=== PATIENT | male | born 1965 | race Caucasian/White ===

== ENCOUNTER 2018-10-06 10:53 | Emergency (ER) | payer MEDICAID, OTHER ==
[~2018-10-06] VITALS: Ht 172.7 cm; Wt 81.8 kg
[~2018-10-06 10:53] MED LIST: CLON-527 PO; PARO30TA4 PO
[2018-10-06 10:56] VITALS: BP 132/90
[2018-10-06] MEDS ORDERED: PARO40TA PO (11:27)
[2018-10-06] MEDS ORDERED: GABA-530 PO (11:27)
== END 2018-10-06 11:33 | disposition home or self-care (01) ==
LOC: ER 10:53
DX: G62.9 Polyneuropathy, unspecified (principal); I10 Essential (primary) hypertension; F41.9 Anxiety disorder, unspecified; F32.9 Major depressive disorder, single episode, unspecified; Z76.0 Encounter for issue of repeat prescription; Z59.0 Homelessness; Z56.0 Unemployment, unspecified; Z88.0 Allergy status to penicillin; Z79.899 Other long term (current) drug therapy
CPT/HCPCS: 99283

== ENCOUNTER 2018-11-13 17:45 | Emergency (ER) | payer SELFPAY ==
[~2018-11-13] VITALS: Ht 172.7 cm; Wt 77.3 kg
[~2018-11-13 17:45] MED LIST changes: +GABA-530 PO; +PARO40TA PO
[2018-11-13] MEDS ORDERED: MUPI22OI30 TOP (19:21)
[2018-11-13] MEDS ORDERED: TERB30CR22 TP (19:21)
[2018-11-13 19:37] VITALS: BP 144/99
== END 2018-11-13 19:38 | disposition home or self-care (01) ==
LOC: ER 17:46
DX: B36.0 Pityriasis versicolor (principal); L01.09 Other impetigo; G62.9 Polyneuropathy, unspecified; I10 Essential (primary) hypertension; Z59.0 Homelessness; Z56.0 Unemployment, unspecified; Z88.0 Allergy status to penicillin; Z79.899 Other long term (current) drug therapy
CPT/HCPCS: 99283

== ENCOUNTER 2018-11-28 20:28 | Emergency (ER) | payer OTHER ==
[~2018-11-28] VITALS: Ht 172.7 cm; Wt 79.5 kg
[~2018-11-28 20:28] MED LIST changes: +TERB30CR22 TP
[2018-11-28] MEDS ORDERED: MUPI22OI30 TOP (22:26)
[2018-11-28] MEDS ORDERED: SULF1TAB49 PO (22:26)
[2018-11-28 22:50] VITALS: BP 129/93
== END 2018-11-28 22:38 | disposition home or self-care (01) ==
LOC: ER 20:28
DX: L08.89 Other specified local infections of the skin and subcutaneous tissue (principal); I10 Essential (primary) hypertension; F41.9 Anxiety disorder, unspecified; F32.9 Major depressive disorder, single episode, unspecified; G62.9 Polyneuropathy, unspecified; Z59.0 Homelessness; Z56.0 Unemployment, unspecified; Z88.0 Allergy status to penicillin; Z79.899 Other long term (current) drug therapy
CPT/HCPCS: 99283

== ENCOUNTER 2019-07-03 16:40 | Emergency (ER) | payer SELFPAY ==
[~2019-07-03] VITALS: Ht 172.7 cm; Wt 79.0 kg
[~2019-07-03 16:40] MED LIST changes: -TERB30CR22 TP; +TERB30CR8 TP
[2019-07-03 16:46] VITALS: BP 128/90
[2019-07-03] MEDS ORDERED: MINO100C61 PO (17:20)
[2019-07-03] MEDS ORDERED: PARO40TA4 PO (17:20)
[2019-07-03] MEDS ORDERED: MUPI22OI30 TOP (17:20)
== END 2019-07-03 17:41 | disposition home or self-care (01) ==
LOC: ER 16:41
DX: L73.9 Follicular disorder, unspecified (principal); I10 Essential (primary) hypertension; F41.9 Anxiety disorder, unspecified; F32.9 Major depressive disorder, single episode, unspecified; Z59.0 Homelessness; Z56.0 Unemployment, unspecified; Z79.899 Other long term (current) drug therapy
CPT/HCPCS: 99281; 99283

== ENCOUNTER 2019-10-05 18:51 | Emergency (ER) | payer MEDICAID ==
[~2019-10-05] VITALS: Ht 172.7 cm; Wt 67.5 kg
[~2019-10-05 18:51] MED LIST changes: +PARO40TA4 PO
[2019-10-05 18:55] VITALS: BP 130/88
[2019-10-05] MEDS ORDERED: MUPI22OI30 TOP (19:20)
[2019-10-05] MEDS ORDERED: BACDS PO (19:20)
== END 2019-10-05 20:04 | disposition home or self-care (01) ==
LOC: ER 18:52
DX: L01.00 Impetigo, unspecified (principal); G62.9 Polyneuropathy, unspecified; I10 Essential (primary) hypertension; F41.9 Anxiety disorder, unspecified; F32.9 Major depressive disorder, single episode, unspecified; Z59.0 Homelessness; Z56.0 Unemployment, unspecified; Z79.899 Other long term (current) drug therapy
CPT/HCPCS: 99283

== ENCOUNTER 2019-11-20 18:07 | Emergency (ER) | payer MEDICAID ==
[~2019-11-20] VITALS: Ht 172.7 cm; Wt 81.8 kg
[2019-11-20 18:19] VITALS: BP 128/88
[2019-11-20] MEDS ORDERED: PENI500T2 PO (19:19)
== END 2019-11-20 19:41 | disposition home or self-care (01) ==
LOC: ER 18:07
DX: K08.89 Other specified disorders of teeth and supporting structures (principal); I10 Essential (primary) hypertension; F41.9 Anxiety disorder, unspecified; F32.9 Major depressive disorder, single episode, unspecified; Z56.0 Unemployment, unspecified; Z59.0 Homelessness; Z79.2 Long term (current) use of antibiotics; Z79.899 Other long term (current) drug therapy
CPT/HCPCS: 99283

== ENCOUNTER 2019-12-17 15:25 | Emergency (ER) | payer MEDICAID ==
[~2019-12-17] VITALS: Ht 172.7 cm; Wt 81.8 kg
[~2019-12-17 15:25] MED LIST changes: +PENI500T2 PO
[2019-12-17 15:31] VITALS: BP 131/94
[2019-12-17] MEDS ORDERED: MUPI22OI30 TOP (15:56)
[2019-12-17] MEDS ORDERED: DOXY100C76 PO (15:56)
== END 2019-12-17 16:27 | disposition home or self-care (01) ==
LOC: ER 15:26
DX: L08.89 Other specified local infections of the skin and subcutaneous tissue (principal); I10 Essential (primary) hypertension; F41.9 Anxiety disorder, unspecified; F32.9 Major depressive disorder, single episode, unspecified; Z56.0 Unemployment, unspecified; Z59.0 Homelessness; Z79.2 Long term (current) use of antibiotics; Z79.899 Other long term (current) drug therapy
CPT/HCPCS: 99283

== ENCOUNTER 2020-07-27 19:34 | Emergency (ER) | payer MEDICAID ==
[~2020-07-27 19:34] MED LIST changes: -PENI500T2 PO
== END 2020-07-27 23:16 | disposition left against medical advice (07) ==
LOC: ER 19:34
DX: R51.9 Headache, unspecified (principal); Z53.21 Procedure and treatment not carried out due to patient leaving prior to being seen by health care provider

== ENCOUNTER 2022-01-03 15:31 | Emergency (ER) | payer MEDICAID ==
[~2022-01-03] VITALS: Ht 172.7 cm; Wt 72.7 kg
[2022-01-03 16:31] VITALS: BP 123/81
[2022-01-03] MEDS ORDERED: CHLO25CA10 PO (17:13)
== END 2022-01-03 17:30 | disposition home or self-care (01) ==
LOC: ER 15:32
DX: F13.239 Sedative, hypnotic or anxiolytic dependence with withdrawal, unspecified (principal); R56.9 Unspecified convulsions; I10 Essential (primary) hypertension; F41.9 Anxiety disorder, unspecified; F32.A Depression, unspecified; Z56.0 Unemployment, unspecified; Z59.00 Homelessness unspecified; Z79.899 Other long term (current) drug therapy
CPT/HCPCS: 99283

== ENCOUNTER 2022-04-24 12:07 | Emergency (ER) | payer MEDICAID ==
[~2022-04-24] VITALS: Ht 172.7 cm; Wt 66.4 kg
[~2022-04-24 12:07] MED LIST changes: +CHLO25CA10 PO; +PARO-154 PO; -PARO40TA PO
[2022-04-24 12:49] VITALS: BP 121/85
== END 2022-04-24 14:16 | disposition home or self-care (01) ==
LOC: ER 12:07
DX: F19.10 Other psychoactive substance abuse, uncomplicated (principal); I10 Essential (primary) hypertension; F41.9 Anxiety disorder, unspecified; F32.A Depression, unspecified; Z59.00 Homelessness unspecified; Z56.0 Unemployment, unspecified; Z79.899 Other long term (current) drug therapy; Z79.1 Long term (current) use of non-steroidal anti-inflammatories (NSAID)
CPT/HCPCS: 99281

== ENCOUNTER 2022-04-30 11:15 | Emergency (ER) | payer MEDICAID ==
[~2022-04-30] VITALS: Ht 172.7 cm; Wt 70.5 kg
[2022-04-30 14:42] VITALS: BP 124/83
== END 2022-04-30 14:53 | disposition home or self-care (01) ==
LOC: ER 11:16
DX: F19.10 Other psychoactive substance abuse, uncomplicated (principal); I10 Essential (primary) hypertension; F31.9 Bipolar disorder, unspecified; F15.10 Other stimulant abuse, uncomplicated; Z59.00 Homelessness unspecified; Z56.0 Unemployment, unspecified; Z79.899 Other long term (current) drug therapy; Z79.1 Long term (current) use of non-steroidal anti-inflammatories (NSAID); Z79.2 Long term (current) use of antibiotics; Y90.9 Presence of alcohol in blood, level not specified
CPT/HCPCS: 99281